=== PATIENT | male | born 1965 | race Caucasian/White ===

== ENCOUNTER 2021-08-12 07:11 | Outpatient (REF) | payer OTHER, SELFPAY ==
[2021-08-12 12:13] LABS: Alanine Aminotransferase 61 U/L (0-40); Alkaline Phosphatase 75 U/L (39-117); Anion Gap 11 (12-20); Aspartate Amino Transferase 35 U/L (5-37); Bilirubin Total 0.5 mg/dL (0.0-1.0); Blood Urea Nitrogen 12 mg/dL (9-16); Calcium 9.5 mg/dL (8.4-10.2); Carbon Dioxide 28 mmol/L (22-29); Chloride 105 mmol/L (96-108); Cholesterol 283 mg/dL; Estimated Glomerular Filt Rate > 60; Glucose Fasting 96 mg/dL (60-99); HDL Cholesterol 41 mg/dL; LDL Cholesterol Calculated 194 mg/dl; Sodium 139 mmol/L (135-145); Total Protein 6.9 g/dL (6.5-8.0); Triglycerides 243 mg/dL
[2021-08-12 12:17] LABS: Prostate Specific Antigen Scr 1.55 ng/mL (<0.05-4.0)
== END 2021-08-12 07:12 | disposition home or self-care (01) ==
LOC: HO.WFDLDS 07:11
PROVIDERS: Visit Provider Family Medicine
DX: Z00.00 Encounter for general adult medical examination without abnormal findings (principal); Z12.5 Encounter for screening for malignant neoplasm of prostate
CPT/HCPCS: 36415; 80053; 80061; 84153; 84443

== ENCOUNTER → 2021-09-16 14:29 | Outpatient (BNVA) | payer OTHER, SELFPAY | PROVIDERS: PCP Family Medicine; Referring Provider Family Medicine; Visit Provider Nurse Practitioner Family ==

== ENCOUNTER 2021-12-23 07:13 | Outpatient (REF) | payer OTHER, SELFPAY ==
[2021-12-23 12:04] LABS: Alanine Aminotransferase 32 U/L (0-40); Alkaline Phosphatase 66 U/L (39-117); Anion Gap 13 (12-20); Aspartate Amino Transferase 22 U/L (5-37); Blood Urea Nitrogen 14 mg/dL (9-16); Calcium 9.2 mg/dL (8.4-10.2); Carbon Dioxide 25 mmol/L (22-29); Chloride 106 mmol/L (96-108); Cholesterol 245 mg/dL; Estimated Glomerular Filt Rate > 60; Glucose Fasting 93 mg/dL (60-99); HDL Cholesterol 42 mg/dL; LDL Cholesterol Calculated 181 mg/dl; Potassium 4.7 mmol/L (3.3-5.1); Sodium 139 mmol/L (135-145); Total Protein 6.6 g/dL (6.5-8.0); Triglycerides 112 mg/dL
== END 2021-12-23 07:14 | disposition home or self-care (01) ==
LOC: HO.WFDLDS 07:13
PROVIDERS: Visit Provider Family Medicine
DX: Z00.00 Encounter for general adult medical examination without abnormal findings (principal)
CPT/HCPCS: 36415; 80053; 80061

== ENCOUNTER 2022-05-22 08:19 | Outpatient (REF) | payer OTHER, SELFPAY ==
[2022-05-22 12:31] LABS: Alanine Aminotransferase 50 U/L (0-40); Albumin Level 4.4 g/dL (3.5-5.0); Alkaline Phosphatase 97 U/L (39-117); Anion Gap 16 (12-20); Aspartate Amino Transferase 26 U/L (5-37); Bilirubin Total 1.2 mg/dL (0.0-1.0); Blood Urea Nitrogen 13 mg/dL (9-16); Calcium 9.5 mg/dL (8.4-10.2); Carbon Dioxide 25 mmol/L (22-29); Chloride 101 mmol/L (96-108); Cholesterol 228 mg/dL; Estimated Glomerular Filt Rate > 60; Glucose Fasting 85 mg/dL (60-99); HDL Cholesterol 59 mg/dL; LDL Cholesterol Calculated 153 mg/dl; Sodium 137 mmol/L (135-145); Total Protein 7.3 g/dL (6.5-8.0); Triglycerides 82 mg/dL
== END 2022-05-22 08:20 | disposition home or self-care (01) ==
LOC: HO.WFDLDS 08:19
PROVIDERS: Visit Provider Family Medicine
DX: Z00.00 Encounter for general adult medical examination without abnormal findings (principal); R74.01 Elevation of levels of liver transaminase levels
CPT/HCPCS: 36415; 80053; 80061

== ENCOUNTER 2022-06-23 08:10 | Day surgery (SDC) | payer OTHER, SELFPAY ==
[2022-06-18 15:54] VITALS: BMI 22.0
--- NOTE | 2022-06-22 12:40 | HO.ANESPROP2 ---
Documented by User: Kamille Marie NP 06/22/22 12:41 HPI - Anesthesia Eval Consult details Narrative: 57yo M for Colonoscopy PMFSH Active Problems Active Problems: All Active Problems (Updated 06/22/22 @ 11:09 by Radha Weaver, RN) Laboratory exam ordered as part of routine general medical examination (Acute) Difficulty sleeping (Acute) History of diverticulitis (Acute) Sleep disorder, unspecified (Acute) Excessive daytime sleepiness (Acute) Adult general medical exam (Acute) Elevated alanine aminotransferase (ALT) level (Acute) Hyperlipidemia (Acute) Screening for colon cancer (Acute) Screening for prostate cancer (Acute) Hearing loss (Acute) Rash (Acute) Toenail fungus (Acute) Encounter for screening colonoscopy (Acute) Anxiety (Acute) Rib pain on right side (Acute) Past Medical History Medical History (Updated 06/22/22 @ 11:09 by Radha Weaver, OLIVER) Elevated cholesterol History of diverticulitis Surgical History Surgical History History of hernia surgery Social History Social History Housing: House Alcohol intake: current Alcohol intake frequency: a few times a month Alcohol type: beer Patient Tobacco Use Status: Former Tobacco user e-Cigarette/Vaping Use: Never Used Second Hand Smoke Exposure: No service: No Current occupational status: employed Current occupation: [employer] Current occupational exposures/hazards: No Cognitive needs: No Hearing needs: No Vision needs: Yes (Glasses) Meds Allergies Allergy/AdvReac Type Severity Reaction Status Date / Time No Known Allergies Allergy Verified 05/21/22 15:35 Exam Exam Date and Time: June 22, 2022 1240 Height,Weight and Vital Signs: Height 5 ft 8 in Weight 65.771 kg Pertinent Lab Results Pertinent Lab Results: Laboratory Tests 05/22/22 08:25 Sodium 137 Potassium 5.0 Chloride 101 Carbon Dioxide 25 BUN 13 Creatinine 1.08 Assessment and Plan Assessment Anesthesia Assessment: Chart Reviewed Documented by User: Anthony Magallanes MD 06/23/22 16:04 [facility] Past Medical History Medical History (Updated 06/22/22 @ 11:09 by Radha Weaver RN) Elevated cholesterol History of diverticulitis Functional capacity: independent ambulation Family History Family history of problems with anesthesia: No Surgical History Surgical History History of hernia surgery History of Problems with Anesthesia: No Social History Social History Housing: House Alcohol intake: current Alcohol intake frequency: a few times a month Alcohol type: beer Patient Tobacco Use Status: Former Tobacco user e-Cigarette/Vaping Use: Never Used Second Hand Smoke Exposure: No service: No Current occupational status: employed Current occupation: [employer] Current occupational exposures/hazards: No Cognitive needs: No Hearing needs: No Vision needs: Yes (Glasses) Meds Allergies Allergy/AdvReac Type Severity Reaction Status Date / Time No Known Allergies Allergy Verified 05/21/22 15:35 Exam Airway Mallampati Class: III TM Dist: >3cm Neck ROM: Full Loose/Missing/Broken Teeth: Yes (Poor dentition overall , fillings ) Heart: S1,S2 Lungs: b/l breath sounds Assessment and Plan Assessment Anesthesia Assessment: Anesthesia Plan Discussed Final Anesthetic Review Family History of Problems with Anesthesia: No History of Problems with Anesthesia: No NPO: Yes ASA Class: II Final Preanesthetic Review: Meds/Allgs Chart Reviewed, Consent Obtained/Reviewed and Anes Risks/Benef Reviewed Patient Risk: Intermediate Procedure Risk: Intermediate Anesthetic Plan Anesthetic Plan: MAC: Disposition: Standard PACU
[2022-06-23 08:18] VITALS: BP 138/71; PULSE 65; RESP 16; TEMP 36.6; O2SAT 99; BMI 22.0
--- NOTE | 2022-06-23 09:14 | MHC.SHP ---
Pre-Procedural Eval Section A Date of Service: 06/23/22 Section B Chief Complaint: screening Relevant Family History (Specify if Yes): No Relevant Social History: None Present Medications: see Short Stay Collaborative assessment Medical History: Significant History (Elevated cholesterol History of diverticulitis) History of Previous Operations: Relevant previous surgery/procedure and date(s) (hernia surgery) Allergies: Allergies Allergy/AdvReac Type Severity Reaction Status Date / Time No Known Allergies Allergy Verified 05/21/22 15:35 Review of Systems Sugical H&P ROS: Negative: Constitution, Cardiovascular, Respiratory, Neurological, Psychiatric, Hem-Onc, Allergic/Immunologic, Gastrointestinal, Genitourinary, Musculoskeletal, Integumentary, Endocrine and Eyes/Ears/Nose/Throat Exam Surgical H&P Exam: Normal: HEENT, Normal: Heart, Normal: Lungs, Normal: Extremities, Normal: Abdomen, Normal: Skin and Normal: Neurological Plan Diagnosis/Plan: Unchanged I have reviewed the history and physical and performed a pertinent physical examination on my patient. No changes have occurred unless specified.
--- NOTE | 2022-06-23 09:15 | P.OP_ITS ---
Operative Note Operative Note Date of Service: 06/23/22 Narrative: Operative Information Procedure Description: Colonoscopy Indication: screening Anesthesia: MAC COLONOSCOPY Instrument: Olympus variable stiffness pediatric scope 190L Colonoscopy Monitoring: Vital signs and clinical assessment, continuous EKG monitoring, Pulse oximetry, Carbon Dioxide monitoring and blood pressure monitoring were done throughout the procedure. Colon withdrawal time was 12 minutes. Procedure: The patient was placed in the left lateral decubitis position and pre-procedure medications were administered. After a digital rectal examination of the ano-rectum, the video colonoscope was inserted into the rectum and advanced through the colon to the cecum/TI. The colonoscope was slowly withdrawn in a retrograde panoramic fashion and the colon mucosa was carefully examined including a retroflexed view of the rectum. Findings and interventions are described below. Procedure Difficulty: moderate, pressure applied due to severe looping from diverticulosis Findings: Terminal Ileum-not intubated Severe fernandez diverticulosis jennifer left sided colon with tight lumen. Cecum:normal Ascending Colon: normal Transverse Colon -normal Descending Colon:normal Sigmoid Colon: 10 mm sessile polyp removed with cold snare Rectum: Retroflexion with large internal hemorrhoids, grade I, 10 mm sessile polyp removed with cold snare-not retrieved Anorectum - normal Colon preparation: Chancellor Bowel Preparation Scale Right colon; 2 Transverse colon: 3 Left colon; 3 (0 = Unprepared colon segment with mucosa not seen due to solid stool that cannot be cleared. 1 = Portion of mucosa of the colon segment seen, but other areas of the colon segment not well seen due to staining, residual stool and/or opaque liquid. 2 = Minor amount of residual staining, small fragments of stool and/or opaque liquid, but mucosa of colon segment seen well. 3 = Entire mucosa of colon segment seen well with no residual staining, small fragments of stool or opaque liquid) Impression and Post Procedure Diagnosis: polyps internal hemorrhoids diverticular disease Plan: High fiber diet leaflet Avoid straining at stool, epsom salts and sitz bath, anusol supps or cream Repeat Colonoscopy in 4-5 years or earlier if clinically indicated due to adenomatous appearing polyps by Kudo classification Above findings were reviewed with the patient and relevant handouts were provided if indicated.
[2022-06-23 09:57] VITALS: BP 101/57; PULSE 60; RESP 16; TEMP 36.2; O2SAT 98
[2022-06-23 10:12] VITALS: BP 121/70; PULSE 53; RESP 18; TEMP 36.2; O2SAT 99
== END 2022-06-23 11:08 | disposition home or self-care (01) ==
PROVIDERS: PCP Family Medicine; Visit Provider Internal Medicine Gastroenterology
PROC: 0DJD8ZZ Inspection of Lower Intestinal Tract, Via Natural or Artificial Opening Endoscopic (ICD-10-PCS; CPT 45378; principal; 2022-06-23 09:10)
DX: Z12.11 Encounter for screening for malignant neoplasm of colon (principal); Z87.19 Personal history of other diseases of the digestive system; D12.5 Benign neoplasm of sigmoid colon; K57.30 Diverticulosis of large intestine without perforation or abscess without bleeding; K64.0 First degree hemorrhoids; Z79.899 Other long term (current) drug therapy; Z87.891 Personal history of nicotine dependence
CPT/HCPCS: 45385; 88305

== ENCOUNTER 2023-09-22 07:56 | Outpatient (AMB) | payer OTHER, SELFPAY ==
--- NOTE | 2023-09-22 08:05 | A.OFFPC_ITS ---
Vital Signs 09/22/23 08:09 Height 5 ft 8 in Weight 153 lb BMI 23.3 BP 126/70 Blood Pressure Location Rt brachial Position Sitting Respiration 13 Pulse 77 Pulse Source Pulse Oximeter Temp 97.9 F Temp Source Temporal Artery Scan Pulse Oximetry (%) 97 Oxygen Delivery Method Room Air Intake Visit Reasons: Annual PE Intake Note: Patient states that he cant eat fruits anymore. Patient states that his stomach starts turning and he gets very gassy everytime he tries. 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 Has eliminated from diet and feels great. Wt is stable. Was on statin in the past - stopped this as it was causing joint aches. Eyes - glasses. Last eye exam overdue. Will schedule. Does not need referral. Skin - No issues Denies changes in Family HX. Note 2 brothers with prostate ca. 1 brother w/ colon ca. Immunizations - declines flu, pcv, shingles. Due for Td will get today. Due for repeat labs. Health maintenance: Colonoscopy: 07/12/2022 with adenoma, repeat in 4-5 years. Specialist: [facility] medicine -- all of his sx are now gone. No longer following. No CPAP. Sleeping well. 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 1. Little interest or pleasure in doing things: not at all 2. Feeling down, depressed, or hopeless: not at all 3. Trouble falling or staying asleep, or sleeping too much: several days 4. Feeling tired or having little energy: several days 5. Poor appetite or overeating: not at all 6. Feeling bad about yourself - or that you are a failure or have let yourself or your family down: not at all 7. Trouble concentrating on things, such as reading the newspaper or watching television: not at all 8. Moving or speaking so slowly that other people could have noticed. Or the opposite - being so fidgety or restless that you have been moving around a lot more than usual: not at all 9. Thoughts that you would be better off or of hurting yourself in some way: not at all Total score: 2 Depression Screening Interpretation: Negative Depression Screening Done: Yes 44428 - PHQ-9 Billing: Yes Source: Developed by Drs. Pipo Yo, Hayley Gutiérrez, Navid Levine and colleagues, with an educational robles from [employer]. Thrive Questionnaire Date Thrive assessed: 09/22/23 I am a: Patient What is your living situation today?: I have a steady place to live Within the past 12 months, did the food you bought not last and you didn't have the money to get more?: Never true Within the past 12 months, did you worry whether your food would run out before you got money to buy more?: Never true Do you have trouble paying for medicines?: No Do you have trouble getting transportation to medical appointments?: No Do you have trouble paying your heating and electricity bill?: No Do you have trouble taking care of your child, family member or friend?: No Do you have trouble with day-to-day activities such as bathing, preparing meals, shopping, managing finances, etc.?: No Are you currently unemployed and looking for a job?: No Are you interested in more education?: No Please select the resources that you would like help with: None Currently or been in a relationship where the following occur: no concerns reported THRIVE Score: 0 AUDIT C Alcohol Use Questionnaire (AUDIT-C) 1. How often do you have a drink containing alcohol?: 4 or more times a week 2. How many drinks containing alcohol do you have on a typical day when you are drinking?: 1 or 2 3. How often do you have six or more drinks on one occasion?: Never Total Score: 4 Score Reviewed/Action Taken: No ANISA-7 AMB Questionnaire ANISA-7 Date ANISA - 7 assessed: 09/22/23 Feeling nervous, anxious, or on edge: 0 = Not at all Not being able to stop or control worryin = Not at all Worrying too much about different things: 0 = Not at all Trouble relaxin = Not at all Being so restless that it is hard to sit still: 0 = Not at all Becoming easily annoyed or irritable: 0 = Not at all Feeling afraid as if something awful might happen: 0 = Not at all Total ANISA-7 score (0-4 normal; 5-9 mild; 10-14 moderate; 15-21 severe): 0 Source: Developed by Drs. Pipo Yo, Hayley Gutiérrez, Navid Levine and colleagues, with an educational robles from [employer]. ANISA-7 Assessment Billing ANISA-7 Assessment Tool: ANISA-7 Assessment 76988 Review of Systems Const Details: Constitutional: [Denies} fever. Skin: Denies rash. Eye: Denies eye pain. ENMT: Denies sore throat and nasal congestion. Respiratory: Denies shortness of breath and cough. Gastrointestinal: Denies nausea, vomiting or abdominal pain. Cardiovascular: Denies chest pain and syncope. Genitourinary: Denies dysuria. Musculoskeletal: Denies back pain and extremity pain. Neurologic: Denies headaches, confusion, and weakness. Psychiatric: Denies suicidal thoughts and substance abuse. Allergy/ Immunologic: Denies impaired immunity. Physical exam (Primary Care) Vital Signs: Last Vital Signs Temp 97.9 F 09/22/23 08:09 Pulse 77 09/22/23 08:09 Resp 13 09/22/23 08:09 BP 126/70 09/22/23 08:09 Pulse Ox 97 09/22/23 08:09 Oxygen Delivery Method Room Air 09/22/23 08:09 BMI result Body Mass Index 23.3 Tobacco/Smoking Status: Tobacco use Status Tobacco use date assessed 09/22/23 09/22/23 08:18 Patient Tobacco Use Status Former Tobacco user 09/22/23 08:06 e-Cigarette/Vaping Use Never Used 09/22/23 08:06 PHQ-9: PHQ-9 Score PHQ-9: Total score 2 09/22/23 12:41 Depression Screening Interpretation: Negative Thrive Assessment: Date of Thrive Assessment Date Thrive assessed 09/22/23 09/22/23 08:18 Currently or been in a relationship where the following occur: no concerns reported Const Other: General: Well developed, well nourished, in no acute distress. Appears stated age. Head: Normocephalic, atraumatic. Eyes: Pupils are equal, round and reactive to light and accommodation. Conjunctivae are clear. Vision grossly normal. Ears: TMs clear AU, EACS WNL Nose: Patent, without discharge. Mouth: There are no ulcers or lesions noted. No inflammation, no post nasal drip, no plaques nor exudates. Neck: Supple, no adenopathy or thyromegaly. Lungs: Clear to auscultation bilaterally. No rales, rhonchi or wheeze noted. Good air flow in all marie. Heart: Regular rate and rhythm. No murmurs, click, rubs or gallops are noted. Abdomen: Bowel sounds present in all quadrants. The abdomen is soft, nontender, with no masses or organomegaly noted. No hernias are noted. Musculoskeletal: Joints are nontender, without swelling, redness, or effusions. Range of motion is observed to be normal. Pulses: Peripheral pulses are equal and palpable bilaterally. Extremities: No clubbing, cyanosis nor edema is noted. Neurologic: Gait and station normal. Cranial Nerves 2-12 intact. Motor strength grossly symmetrical and intact. No sensory loss. Balance normal. Skin: No rashes, ulcers, or lesions noted. Turgor is good. Skin color is good. Hair and nails are without abnormalities. Psych: Normal eye contact, affect and mood appropriate, and normal interactions. Patient is alert and appropriate to context. Extremities: No clubbing, cyanosis or edema. 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 The purpose of these visits is to: Screen for medical issues Assess your risk for future medical problems Encourage a healthy lifestyle Update vaccinations and other preventive care services Help you get to know your provider in case of an illness Information Even if you feel fine, you should still see your provider for regular checkups. These visits can help you avoid problems in the future. For example, the only way to find out if you have high blood pressure is to have it checked regularly. High blood sugar and high cholesterol level also may not have any symptoms in the early stages. Simple blood tests can check for these conditions. There are specific times when you should see your provider or receive specific health screenings. The [place] Preventive Services Task Force publishes a list of recommended screenings. Below are screening guidelines for men ages 40 to 64. BLOOD PRESSURE SCREENING Have your blood pressure checked at least once every year. Watch for blood pressure screenings in your area. Ask your provider if you can stop in to have your blood pressure checked. Ask your provider if you need your blood pressure checked more often if: You have diabetes, heart disease, kidney problems, or are overweight or have certain other health conditions You have a first-degree relative with high blood pressure You are Black Your blood pressure top number is from 120 to 129 mm Hg, or the bottom number is from 70 to 79 mm Hg If the top number is 130 mm Hg or greater or the bottom number is 80 mm Hg or greater, this is considered stage 1 hypertension. Schedule an appointment with your provider to learn how you can lower your blood pressure. Effects of age on blood pressure CHOLESTEROL SCREENING Cholesterol screening should begin at age 35 for men with no known risk factors for coronary heart disease. Repeat cholesterol screening should take place: Every 5 years for men with normal cholesterol levels More often if changes occur in lifestyle (including weight gain and diet) More often if you have diabetes, heart disease, kidney problems, or certain other conditions COLORECTAL CANCER SCREENING If you are under age 45, talk to your provider about getting screened. You may need to be screened if you have a strong family history of colon cancer or polyps. Screening may also be considered if you have risk factors such as a history of inflammatory bowel disease or polyps. If you are age 45 to 75, you should be screened for colorectal cancer. There are several screening tests available: A stool-based fecal occult blood (gFOBT) or fecal immunochemical test (FIT) every year A stool sDNA test every 1 to 3 years Flexible sigmoidoscopy every 5 years or every 10 years with stool testing FIT done every year CT colonography (virtual colonoscopy) every 5 years Colonoscopy every 10 years You may need a colonoscopy more often if you have risk factors for colorectal cancer, such as: Ulcerative colitis A personal or family history of colorectal cancer A history of growths in your colon called adenomatous polyps DENTAL EXAM Go to the dentist once or twice every year for an exam and cleaning. Your dentist will evaluate if you have a need for more frequent visits. DIABETES SCREENING All adults who do not have risk factors for diabetes should be screened starting at age 35 and repeated every 3 years. If you have other risk factors for diabetes, such as a first degree relative with diabetes, overweight or obesity, high blood pressure, prediabetes, or a history of heart disease, you may be tested more often. If you are overweight and have other risk factors, such as high blood pressure and are planning to become , screening is recommended. EYE EXAM Have an eye exam every 2 to 4 years ages 40 to 54 and every 1 to 3 years ages 55 to 64. Your provider may recommend more frequent eye exams if you have vision problems or glaucoma risk. Have an eye exam that includes an examination of your retina (back of your eye) at least every year if you have diabetes. IMMUNIZATIONS Commonly needed vaccines include: Flu shot: get one every year COVID-19 vaccine: ask your provider what is best for you Tetanus-diphtheria and acellular pertussis (Tdap) vaccine: have as one of your tetanus-diphtheria vaccines if you did not receive it as an adolescent Tetanus-diphtheria: have a booster (or Tdap) every 10 years Varicella vaccine: receive 2 doses if you never had chickenpox or the varicella vaccine and were born in 1980 or after Hepatitis B vaccine: receive 2, 3, or 4 doses, depending on your exact circumstances, if you did not receive these as a child or adolescent, until age 59 Shingles (herpes zoster) vaccine: at or after age 50 Ask your provider if you should receive other immunizations, especially if you have certain medical conditions, such as diabetes or are at increased risk for some diseases such as pneumonia. INFECTIOUS DISEASE SCREENING Screening for hepatitis C: all adults ages 18 to 79 should get a one-time test for hepatitis C. Screening for human immunodeficiency virus (HIV): all people ages 15 to 65 should get a one-time test for HIV. Depending on your lifestyle and medical history, you may need to be screened for infections such as syphilis, chlamydia, and other infections. LUNG CANCER SCREENING You should have an annual screening for lung cancer with low-dose computed tomog [place]ville (LDCT) if: You are age 50 to 80 years AND You have a 20 pack-year smoking history AND You currently smoke or have quit within the past 15 years OSTEOPOROSIS SCREENING If you are age 50 to 64 and have risk factors for osteoporosis, you should discuss screening with your provider. Risk factors can include long-term steroid use, low body weight, smoking, heavy alcohol use, having a fracture after age 50, or a family history of hip fracture or osteoporosis. Osteoporosis PHYSICAL EXAM All adults should visit their provider from time to time, even if they are healthy. The purpose of these visits is to: Screen for diseases Assess risk of future medical problems Encourage a healthy lifestyle Update vaccinations and other preventive care services Maintain a relationship with a provider in case of an illness Your height, weight, and body mass index (BMI) should be checked at every exam. During your exam, your provider may ask you about: Depression and anxiety Diet and exercise Alcohol and tobacco use Safety, such as use of seat belts and smoke detectors Your medicines and risk for interactions PROSTATE CANCER SCREENING If you're 55 through 69 years old, before having the test, talk to your provider about the pros and cons of having a PSA test. Ask about: Whether screening decreases your chance of dying from prostate cancer. Whether there is any harm from prostate cancer screening, such as side effects from testing or overtreatment of cancer when discovered. Whether you have a higher risk of prostate cancer than others. If you are age 55 or younger, screening is not generally recommended. You should talk with your provider about if you have a higher risk for prostate cancer. Risk factors include: Having a family history of prostate cancer (especially a brother or father) Being If you choose to be tested, the PSA blood test is repeated over time (yearly or less often), though the best frequency is not known. Prostate examinations are no longer routinely done on men with no symptoms. Prostate cancer SKIN EXAM Your provider may check your skin for signs of skin cancer, especially if you're at high risk. People at high risk include those who have had skin cancer before, have close relatives with skin cancer, or have a weakened immune system. TESTICULAR EXAM The [place] Preventive Services Task Force (USPSTF) now recommends against performing testicular self-exams. Doing testicular self-exams has been shown to have little to no benefit. (2) Screening for prostate cancer: Code(s): Z12.5 - Encounter for screening for malignant neoplasm of prostate (3) Hyperlipidemia: Code(s): E78.5 - Hyperlipidemia, unspecified Qualifiers: Hyperlipidemia type: mixed hyperlipidemia Qualified Code(s): E78.2 - Mixed hyperlipidemia Plan: Was on a statin was stopped taking. Direct LDL drawn today as the patient is not fasting We will follow-up with him if the results indicates that he needs to restart on a statin (4) Laboratory exam ordered as part of routine general medical examination: Code(s): Z00.00 - Encounter for general adult medical examination without abnormal findings (5) Screening for abdominal aortic aneurysm: Code(s): Z13.6 - Encounter for screening for cardiovascular disorders (6) Cerumen impaction: Code(s): H61.20 - Impacted cerumen, unspecified ear Qualifiers: Laterality: right Qualified Code(s): H61.21 - Impacted cerumen, right ear Plan: Earwax (Cerumen Impaction) Created in Ears Earwax, called cerumen, is produced by special wax-forming glands located in the skin of the outer one-third of the ear canal. It is normal to have cerumen in ear canal as this waxy substance serves as a self-cleaning agent with protective, lubricating, and antibacterial properties. The absence of earwax may result in dry, itchy ears. Self-cleaning means there is a slow and field return repairer movement of earwax and skin cells from the eardrum to the ear opening. Old earwax is constantly being transported, assisted by chewing and jaw motion, from the ear canal to the ear opening where, most of the time, it dries, flakes, and falls out. What Are the Symptoms of an Earwax Blockage? Symptoms of an earwax problem may include: Earache Feeling of plugged hearing or fullness in the ear Partial hearing loss that gets worse Tinnitus, ringing, or noises in the ear Itching, odor, or discharge Coughing Pain Infection What Causes Earwax Blockage? When a patient has wax blockage against the eardrum, it is often because they have been probing the ear with such things as cotton-tipped swabs, autumn pins, or twisted napkin corners. These objects only push the wax in deeper in the ear canal. Why Is It Dangerous to Use Swabs to Remove Earwax? Wax blockage is one of the most common causes of hearing loss. This is often caused by attempts to clean the ear with cotton swabs. Most cleaning attempts merely push the wax deeper into the ear canal which is shaped like an hourglass, causing a blockage at the narrowing part of the ear canal. In addition, accidental trauma to the ear drum or ear bones can occur if the swab is pushed too deep. Good intentions to keep ears clean may lessen the ability to hear. The ear is a delicate and complicated body part, including the skin of the ear canal and the eardrum. Therefore, special care should be given to this part of the body. Discontinue the habit of inserting cotton-tipped swabs or other objects into the ear canals. What Are the Treatment Options? Cleaning a working ear can be done by washing it with a soft cloth, but do not insert anything into the ear. Ideally, the ear canals should never have to be cleaned. However, that isn?t always the case. The ears should be cleaned when enough earwax gathers to cause symptoms or to prevent a needed assessment of the ear by your doctor. This condition is call cerumen impaction. Most cases of ear wax blockage respond to home treatments used to soften wax. Patients can try placing a few drops of mineral oil, baby oil, glycerin, or commercial drops in the ear. Detergent drops such as hydrogen peroxide or carbamide peroxide (available in most pharmacies) may also aid in the removal of wax. Irrigation or ear syringing is commonly used for cleaning and can be performed by a physician or at home using a commercially available irrigation kit. Common solutions used for syringing include water and saline, which should be warmed to body temperature to prevent dizziness. Ear syringing is most effective when water, saline, or wax dissolving drops are put in the ear canal 15 to 30 minutes before treatment. Caution is advised to avoid having your ears irrigated if you have diabetes, a hole in the eardrum (perforation), tube in the eardrum, skin problems such as eczema in the ear canal or a weakened immune system. >> If you have been prescribed Debrox, use as directed for 5 nights and return to the office on Day 6 for an ear lavage to remove the wax<< Manual removal of earwax is also effective. This is most often performed by an ENT (ear, nose, and throat) specialist, or mainframe developer, using suction or special miniature instruments, and a microscope to magnify the ear canal. Manual removal is preferred if your ear canal is narrow, the eardrum has a perforation or tube, other methods have failed, or if you have skin problems affecting the ear canal, diabetes or a weakened immune system. When Should I Talk to a Doctor? If home treatments do not help, or if wax has accumulated so much that it blocks your ear canal and your ability to hear, an ENT specialist may prescribe eardrops designed to soften wax, or they may wash or vacuum it out. Your ENT s pecialist may also need to remove the wax under microscopic visualization. If there is a possibility of a perforation in the eardrum, consult a physician prior to trying any [id number] remedies. Putting eardrops or other products in the ear with the presence of an eardrum perforation may cause pain or an infection. Washing water through such a hole could start an infection. If you are prone to repeated wax impaction or use hearing aids, consider seeing your doctor every six to 12 months for a checkup and routine preventive cleaning. What Questions Should I Ask My Doctor? What are the benefits and risks/side effects of different cerumen removal management options: earwax softening products, water irrigation vs. physical removal? Does cerumen accumulation vary with age, gender, familial or dietary intake? How do I manage swimming underwater with cerumen impaction? Should anything be done to the ears to prevent a buildup of earwax? How often should cerumen be removed from the ears? Are ear candles a safe option for removing earwax? (7) Anxiety: Comment: resolved Code(s): F41.9 - Anxiety disorder, unspecified (8) History of diverticulitis: Code(s): Z87.19 - Personal history of other diseases of the digestive system Orders: Orders Comprehensive Met. Panel Today E78.5 - Hyperlipidemia, unspecified, Z00.00 - Encounter for general adult medical examination without abnormal findings, Z12.5 - Encounter for screening for malignant neoplasm of prostate LDL Cholesterol Direct Today E78.5 - Hyperlipidemia, unspecified, Z00.00 - Encounter for general adult medical examination without abnormal findings, Z12.5 - Encounter for screening for malignant neoplasm of prostate TSH reflex Free T4 Today E78.5 - Hyperlipidemia, unspecified, Z00.00 - Encounter for general adult medical examination without abnormal findings, Z12.5 - Encounter for screening for malignant neoplasm of prostate UA and rflx microscopic Today E78.5 - Hyperlipidemia, unspecified, Z00.00 - Encounter for general adult medical examination without abnormal findings, Z12.5 - Encounter for screening for malignant neoplasm of prostate TDaP Immunization Today Z23 - Encounter for immunization PSA, Ultra Sensitive Today E78.5 - Hyperlipidemia, unspecified, Z00.00 - Encounter for general adult medical examination without abnormal findings, Z12.5 - Encounter for screening for malignant neoplasm of prostate Microalbumin, Random (w Creat) Today E78.5 - Hyperlipidemia, unspecified, Z00.00 - Encounter for general adult medical examination without abnormal findings, Z12.5 - Encounter for screening for malignant neoplasm of prostate US abdominal aortic aneurysm Today Z13.6 - Encounter for screening for cardiovascular disorders Coding Level of Care Code Est Pt Prev Care 40-64y(65805) Diagnoses Adult general medical exam Z00.00 Screening for prostate cancer Z12.5 Mixed hyperlipidemia E78.2 Hyperlipidemia type: mixed hyperlipidemia Laboratory exam ordered as part of routine general medical examination Z00.00 Screening for abdominal aortic aneurysm Z13.6 Impacted cerumen of right ear H61.21 Laterality: right Anxiety F41.9 History of diverticulitis Z87.19 Additional Codes ANISA-7 Assessment Billing - ANISA-7 Assessment Tool: ANSIA-7 Assessment [id number] ([id number])
[2023-09-22 08:09] VITALS: BP 126/70; PULSE 77; RESP 13; TEMP 36.6; O2SAT 97; BMI 23.3
== END 2023-09-22 09:29 | disposition home or self-care (01) ==
PROVIDERS: PCP Family Medicine; Visit Provider Nurse Practitioner Family
DX: Z00.00 Encounter for general adult medical examination without abnormal findings (principal); E78.2 Mixed hyperlipidemia; H61.21 Impacted cerumen, right ear; Z23 Encounter for immunization; Z12.5 Encounter for screening for malignant neoplasm of prostate; Z13.6 Encounter for screening for cardiovascular disorders; F41.9 Anxiety disorder, unspecified; Z87.19 Personal history of other diseases of the digestive system
CPT/HCPCS: 90471; 90715; 99396

== ENCOUNTER 2023-09-22 09:16 | Outpatient (REF) | payer OTHER, SELFPAY ==
[2023-09-22 11:32] LABS: Appearance Urine Clear; Color Urine Yellow; Glucose Urine UA Negative (Negative); Leukocyte Esterase Urine Negative (Negative); Nitrite Urine Negative (Negative); Urine Blood Negative (Negative); Urine Ketones Negative (Negative); Urine Protein Negative (Neg-Trace)
[2023-09-22 12:06] LABS: Alanine Aminotransferase 31 U/L (0-40); Alkaline Phosphatase 81 U/L (39-117); Anion Gap 10 (12-20); Aspartate Amino Transferase 24 U/L (5-37); Bilirubin Total 0.3 mg/dL (0.0-1.0); Blood Urea Nitrogen 15 mg/dL (9-16); Calcium 9.1 mg/dL (8.4-10.2); Carbon Dioxide 26 mmol/L (22-29); Chloride 107 mmol/L (96-108); Estimated Glomerular Filt Rate > 60; Glucose Random 104 mg/dL (60-115); Potassium 4.2 mmol/L (3.3-5.1); Sodium 139 mmol/L (135-145); Total Protein 7.2 g/dL (6.5-8.0)
[2023-09-22 12:28] LABS: TSH reflex Free T4 1.67 uIU/mL (0.32-4.0)
[2023-09-22 12:33] LABS: Creatinine Urine 95.91 mg/dL; Microalbumin Urine < 5.0 mg/L
[2023-09-23 13:44] LABS: LDL Cholesterol Direct 161 mg/dL (<100)
[2023-09-27 17:48] LABS: PSA, Ultra Sensitive 1.21 ng/mL
== END 2023-09-22 09:17 | disposition home or self-care (01) ==
LOC: HO.WFDLDS 09:16
PROVIDERS: Visit Provider Nurse Practitioner Family
DX: Z00.00 Encounter for general adult medical examination without abnormal findings (principal); Z12.5 Encounter for screening for malignant neoplasm of prostate; E78.5 Hyperlipidemia, unspecified
CPT/HCPCS: 36415; 80053; 81003; 82043; 82570; 83721; 84153; 84443

== ENCOUNTER 2024-09-19 07:43 | Outpatient (REF) | payer OTHER, SELFPAY ==
[2024-09-19 11:49] LABS: Anion Gap 9 (12-20); Blood Urea Nitrogen 16 mg/dL (9-16); Calcium 8.8 mg/dL (8.4-10.2); Carbon Dioxide 26 mmol/L (22-29); Chloride 108 mmol/L (96-108); Cholesterol 227 mg/dL (<200); Estimated Glomerular Filt Rate > 60; Glucose Fasting 99 mg/dL (60-99); HDL Cholesterol 48 mg/dL (>40); LDL Cholesterol Calculated 160 mg/dL (<100); Potassium 4.7 mmol/L (3.3-5.1); Sodium 138 mmol/L (135-145); Triglycerides 98 mg/dL (<150)
== END 2024-09-19 07:44 | disposition home or self-care (01) ==
LOC: HO.WFDLDS 07:43
PROVIDERS: Visit Provider Nurse Practitioner Family
DX: E78.2 Mixed hyperlipidemia (principal)
CPT/HCPCS: 36415; 80048; 80061

== ENCOUNTER 2024-09-25 08:58 | Outpatient (AMB) | payer OTHER, SELFPAY ==
--- NOTE | 2024-09-25 08:59 | MHC.PC.OV ---
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 Labs drawn 09/19/24. Reviewed labs with pt. Triglycerides 98. TC 227. LDL 160. HDL 48. Had been on lovastatin at one point. Notes he has an active lifestyle. Has complaints of hemorrhoids. 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 57943 - PHQ-9 Billing: Patient declined-do not bill Source: Developed by Drs. Pipo Yo, Hayley Gutiérrez, Navid Levine and colleagues, with an educational robles from [employer]. Thrive Questionnaire Date Thrive assessed: 09/22/23 ANISA-7 AMB Questionnaire ANISA-7 Date ANISA - 7 assessed: 09/22/23 Source: Developed by Drs. Pipo Yo, Hayley Gutiérrez, Navid Levine and colleagues, with an educational robles from [employer]. Review of Systems Const Denies chills, Denies fatigue, Denies fever(s), Denies headache(s) and Denies weakness Eyes Denies change in vision ENT Denies dizziness, Denies headache(s), Denies hearing loss, Denies nasal congestion, Denies sinus pain, Denies sinus pressure and Denies sore throat Card Denies chest pain, Denies lightheadedness, Denies dyspnea and Denies other (palpitations) Resp Denies cough, Denies dyspnea and Denies wheezing GI Denies abdominal pain, Denies melena, Denies hematochezia, Denies change in bowel habits, Denies dyspepsia and Denies nausea Denies hematuria and Denies dysuria Musc Denies abnormal gait, Denies myalgias, Denies arthralgias, Denies numbness and Denies tingling Skin/Breast Denies rash, Denies unusual bruising and Denies wounds Neuro Denies abnormal gait, Denies dizziness, Denies headache(s), Denies memory loss, Denies numbness, Denies Sensory deficit (Neuro), Denies tingling and Denies weakness Psych Denies anxiety, Denies depression and Denies memory loss Endo Denies cold intolerance, Denies fatigue, Denies heat intolerance, Denies polydipsia and Denies polyuria Ash/Lymph Denies easy bleeding and Denies easy bruising Aller/Immun Denies wheezing Physical exam (Primary Care) Vital Signs: Last Vital Signs Temp 97.2 F 09/25/24 09:04 Pulse 67 09/25/24 09:04 Resp 13 09/25/24 09:04 BP 137/77 09/25/24 09:04 Pulse Ox 98 09/25/24 09:04 Oxygen Delivery Method Room Air 09/25/24 09:04 BMI result Body Mass Index 22.7 Tobacco/Smoking Status: Tobacco use Status Tobacco use date assessed 09/25/24 09/25/24 09:04 Patient Tobacco Use Status Former Tobacco user 09/25/24 09:04 e-Cigarette/Vaping Use Never Used 09/25/24 09:04 Thrive Assessment: Date of Thrive Assessment Date Thrive assessed 09/22/23 09/25/24 09:04 Const General: no acute distress, well developed, alert and awake Nutritional Appearance: well nourished Orientation/consciousness: patient oriented x3 HENMT Head: Yes normocephalic and Yes atraumatic Ears: hearing grossly normal bilaterally and TM's normal bilaterally General nose exam: Normal external nose present and Normal nares present Mouth: Normal oral and palatal mucosa present and moist mucous membranes Teeth and gingiva: dentition normal Throat: Yes posterior oropharynx normal Eyes General: appearance normal, both eyes and all related structures Pupils: Equal, round and reactive pupils present and Pupil accommodation reflex normal EOM: EOMs intact bilaterally Neck Neck: Yes normal visual inspection, Yes no lymphadenopathy and Yes trachea midline Thyroid: Thyroid normal Carotids: no bruits Lymphatic: no lymphadenopathy noted Chest Chest palpation & inspection: normal inspection of the chest Resp Effort & Inspection: normal respiratory effort Auscultation: clear to auscultation bilaterally Cardio Rate: regular rate Rhythm: regular rhythm Heart sounds: S1 normal heart sound present, S2 normal heart sound present, no gallops, no murmurs and no rubs Bruits: no abdominal aortic bruits and no carotid bruits GI Palpation (GI): No Abdominal aortic bruit present, Soft to palpation, nontender, No hepatosplenomegaly present and No Rebound tenderness present Auscultation: normal bowel sounds General: Yes no CVA tenderness Back/Spine/Pelvis Back: no CVA tenderness Cervical Spine: cervical ROM normal and No Cervical spine tenderness Thoracic/Lumbar Spine: thoraco-lumbar ROM normal, No pain with thoraco-lumbar ROM, No thoracic spinal tenderness and No lumbar spinal tenderness Skin Lesions: no lesions Rashes: no rashes Trauma: no lacerations or abrasions Wounds: no wounds Nails: normal Neuro General: patient oriented x3 Cranial nerves: Yes Equal, round and reactive pupils present Cognition (Neuro): normal cognition Gait exam (Neuro): Normal gait present Motor exam (neuro): 5/5 motor strength present throughout Sensory Exam: No Sensory deficit (Neuro) Deep tendon reflexes (DTR's): Right patellar reflex intensity grade: 2+ and Left patellar reflex intensity grade: 2+ Extrem General: Yes normal to inspection and No edema Psych Appearance: grossly normal Affect: normal affect Attitude: cooperative Thought process: Normal thought process present Coding Level of Care Code Est Pt Level 3 (89565) Est Pt Prev Care 40-64y(54936) Diagnoses Adult general medical exam Z00.00 Mixed hyperlipidemia E78.2 Hyperlipidemia type: mixed hyperlipidemia Screening for colon cancer Z12.11 Screening for prostate cancer Z12.5 Hemorrhoids K64.9 Assessment & Plan Assessment & Plan (1) Adult general medical exam: Code(s): Z00.00 - Encounter for general adult medical examination without abnormal findings Category: Medical Plan: 59-year-old?male?presents?for?complete?physical?exam Encouraged?healthy?diet?with?active?lifestyle?and?exercise (2) Hyperlipidemia: Code(s): E78.5 - Hyperlipidemia, unspecified Category: Medical Qualifiers: Hyperlipidemia type: mixed hyperlipidemia Qualified Code(s): E78.2 - Mixed hyperlipidemia Plan: Patient?had?been?on?lovastatin?but?the?script?ran?out?and?he?did?not?continue?it. He?says?his?diet?has?improved?any?was?hoping?that?his?lipids?would?be?okay. LDL?still?significantly?elevated Will?resume?statin;?start?atorvastatin We?can?follow-up?on?his?labs?in?3?months (3) Screening for colon cancer: Code(s): Z12.11 - Encounter for screening for malignant neoplasm of colon Category: Medical Plan: Patient?had?polyps/tubular?adenoma?in?2021 Currently?up-to-date Follow-up?was?Gastroenterology?as?recommended (4) Screening for prostate cancer: Code(s): Z12.5 - Encounter for screening for malignant neoplasm of prostate Category: Medical Plan: Check?PSA (5) Hemorrhoids: Code(s): K64.9 - Unspecified hemorrhoids Category: Medical Plan: Patient?would?like?referral?to?consider?surgical?procedure Orders: Orders Lipid Panel Today E78.2 - Mixed hyperlipidemia, Z00.00 - Encounter for general adult medical examination without abnormal findings Prostate Specific Antigen Scr Today Z12.5 - Encounter for screening for malignant neoplasm of prostate UA and rflx microscopic Today Z00.00 - Encounter for general adult medical examination without abnormal findings Comprehensive [place]. Panel Fast Today E78.2 - Mixed hyperlipidemia, Z00.00 - Encounter for general adult medical examination without abnormal findings TSH reflex Free T4 Today Z00.00 - Encounter for general adult medical examination without abnormal findings Microalbumin, Random (w Creat) Today I10 - Essential (primary) hypertension Referrals General Surgery Referral K64.9 - Unspecified hemorrhoids Medications: New atorvastatin 20 mg PO BEDTIME 90 days 90 tabs 3RF
[2024-09-25 09:04] VITALS: BP 137/77; PULSE 67; RESP 13; TEMP 36.2; O2SAT 98; BMI 22.7
== END 2024-09-25 09:36 | disposition home or self-care (01) ==
PROVIDERS: PCP Family Medicine; Visit Provider Family Medicine
DX: Z00.00 Encounter for general adult medical examination without abnormal findings (principal); E78.2 Mixed hyperlipidemia; K64.9 Unspecified hemorrhoids; Z12.11 Encounter for screening for malignant neoplasm of colon; Z12.5 Encounter for screening for malignant neoplasm of prostate

== ENCOUNTER 2024-10-02 13:44 | Outpatient (AMB) | payer OTHER, SELFPAY ==
--- NOTE | 2024-10-02 13:45 | A.OFFVIS_ITS ---
Vital Signs 10/02/24 13:51 Height 5 ft 8 in Weight 153 lb BMI 23.3 BP 132/82 Blood Pressure Location Rt brachial Position Sitting Pulse 72 Intake Visit Reasons: Hemorrhoids Intake Note: Patient referred by pcp Dr. Cooper for external hemorrhoids on and off for 2yrs. Patient c/o: bleeding. Denies constipation. 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 Over the last several months, they have become more symptomatic with pain, swelling, and bleeding. Patient had colonoscopy within the last couple of years. Aside from the hemorrhoids this was otherwise within normal limits. Patient takes stool softeners and does local wound care but nonetheless this is hemorrhoids are symptomatic with symptoms as noted above. Patient otherwise tolerating a diet. He has regular bowel habits. Does not have a history of constipation or prolonged sitting on the toilet. He denies any anal receptive practice. 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 Rectal exam demonstrates extensive internal and external hemorrhoids involving the 7 an 11 o'clock position prone. Rectal exam was deferred secondary to patient's discomfort Assessment & Plan Assessment & Plan (1) Hemorrhoids reducible with difficulty: Code(s): K64.8 - Other hemorrhoids Category: Surgical Plan Risks, benefits, alternatives of hemorrhoidectomy reviewed with the patient and included but not limited to bleeding, infection, recurrence, numbness, pain, scarring, incontinence and the patient wishes to proceed. All questions answered. Arrangements will be made for this on a day which is convenient for him. Patient will also receive a many bowel prep day prior. Coding Level of Care Code New Pt Level 5 (25182) Diagnoses Hemorrhoids reducible with difficulty K64.8
[2024-10-02 13:51] VITALS: BP 132/82; PULSE 72; BMI 23.3
== END 2024-10-02 13:58 | disposition home or self-care (01) ==
PROVIDERS: PCP Family Medicine; Referring Provider Family Medicine; Visit Provider Surgery
DX: K64.8 Other hemorrhoids (principal)
CPT/HCPCS: 99204

== ENCOUNTER → 2024-10-02 13:44 | Outpatient (BNVA) | payer OTHER, SELFPAY | PROVIDERS: PCP Family Medicine; Referring Provider Family Medicine; Visit Provider Surgery ==

== ENCOUNTER 2024-12-22 07:31 | Outpatient (REF) | payer OTHER, SELFPAY ==
[2024-12-22 11:45] LABS: Alanine Aminotransferase 33 U/L (0-40); Albumin Level 4.2 g/dL (3.5-5.0); Alkaline Phosphatase 72 U/L (39-117); Anion Gap 12 (12-20); Aspartate Amino Transferase 30 U/L (5-37); Bilirubin Total 0.7 mg/dL (0.0-1.0); Blood Urea Nitrogen 18 mg/dL (9-16); Calcium 9.2 mg/dL (8.4-10.2); Carbon Dioxide 26 mmol/L (22-29); Chloride 106 mmol/L (96-108); Cholesterol 170 mg/dL (<200); Estimated Glomerular Filt Rate > 60; Glucose Fasting 93 mg/dL (60-99); HDL Cholesterol 47 mg/dL (>40); LDL Cholesterol Calculated 107 mg/dL (<100); Potassium 4.5 mmol/L (3.3-5.1); Sodium 139 mmol/L (135-145); Total Protein 7.2 g/dL (6.5-8.0); Triglycerides 82 mg/dL (<150)
[2024-12-22 11:47] LABS: Appearance Urine Clear; Color Urine Yellow; Glucose Urine UA Negative (Negative); Leukocyte Esterase Urine Negative (Negative); Nitrite Urine Negative (Negative); Urine Blood Negative (Negative); Urine Ketones Negative (Negative); Urine Protein Negative (Neg-Trace)
[2024-12-22 11:53] LABS: Prostate Specific Antigen Scr 1.32 ng/mL (<0.05-4.0)
[2024-12-22 12:05] LABS: TSH reflex Free T4 2.13 uIU/mL (0.32-4.0)
[2024-12-22 12:13] LABS: Creatinine Urine 106.74 mg/dL; Microalbum/Creatinine Ratio Ur 5.6 ug/mg cr (<30)
== END 2024-12-22 07:32 | disposition home or self-care (01) ==
LOC: HO.WFDLDS 07:31
PROVIDERS: Visit Provider Family Medicine
DX: Z00.00 Encounter for general adult medical examination without abnormal findings (principal); E78.2 Mixed hyperlipidemia; Z12.5 Encounter for screening for malignant neoplasm of prostate; I10 Essential (primary) hypertension
CPT/HCPCS: 36415; 80053; 80061; 81003; 82043; 82570; 84153; 84443

== ENCOUNTER 2024-12-28 08:14 | Outpatient (AMB) | payer OTHER, SELFPAY ==
--- NOTE | 2024-12-28 08:31 | A.OFFPC_ITS ---
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 Labs drawn 12/22/24. Reviewed labs with pt. Triglyerices 82. TC 170. LDL improved from 160 to 107. HDL 47. He is on artovastatin 20mg. He feels he is doing better with his diet. He notes there is room for improvement in his diet. He reports some fatigue. He states he sleeps well. Denies any snoring, gasping for air. HPI Comments History of Present Illness Details Documentation assistance for Jr Cooper MD, was provided by Federico Trujillo,? Descriptive Catalog Librarian on 12/28/2024 at 8:43 AM EST. Lamb, Dr. Cooper, have read, observed, and verified documentation. ?? 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 Current occupational exposures/hazards: No Cognitive needs: No Hearing needs: No Vision needs: No (Glasses) Questionnaire Thrive Questionnaire Date Thrive assessed: 09/25/24 I am a: Patient What is your living situation today?: I have a steady place to live Within the past 12 months, did the food you bought not last and you didn't have the money to get more?: Never true Within the past 12 months, did you worry whether your food would run out before you got money to buy more?: Never true Do you have trouble paying for medicines?: No Do you have trouble getting transportation to medical appointments?: No Do you have trouble paying your heating and electricity bill?: No Do you have trouble taking care of your child, family member or friend?: No Do you have trouble with day-to-day activities such as bathing, preparing meals, shopping, managing finances, etc.?: No Are you currently unemployed and looking for a job?: No Are you interested in more education?: No Please select the resources that you would like help with: None Currently or been in a relationship where the following occur: No concerns r eported THRIVE Score: 0 ANISA-7 AMB Questionnaire ANISA-7 Date ANISA - 7 assessed: 09/22/23 Source: Developed by Drs. Pipo Yo, Hayley Gutiérrez, Navid Levine and colleagues, with an educational robles from [employer]. Review of Systems Const Denies chills, Reports fatigue, Denies fever(s), Denies headache(s) and Denies weakness ENT Denies dizziness and Denies headache(s) Card Denies dyspnea Resp Denies cough, Denies dyspnea, Denies wheezing and Denies other (shortness of breath) Musc Denies numbness and Denies tingling Neuro Denies dizziness, Denies headache(s), Denies numbness, Denies tingling and Denies weakness Psych Denies anxiety and Denies depression Endo Reports fatigue Aller/Immun Denies wheezing Physical exam (Primary Care) Vital Signs: Last Vital Signs Temp 97.8 F 12/28/24 08:34 Pulse 65 12/28/24 08:34 Resp 16 12/28/24 08:34 BP 135/74 12/28/24 08:34 Pulse Ox 98 12/28/24 08:34 Oxygen Delivery Method Room Air 12/28/24 08:34 BMI result Body Mass Index 22.7 Tobacco/Smoking Status: Tobacco use Status Tobacco use date assessed 12/28/24 12/28/24 08:36 Patient Tobacco Use Status Former Tobacco user 12/28/24 08:36 e-Cigarette/Vaping Use Never Used 12/28/24 08:36 Thrive Assessment: Date of Thrive Assessment Date Thrive assessed 09/25/24 12/28/24 08:36 Currently or been in a relationship where the following occur: No concerns reported Const General: well developed; No acute distress Nutritional Appearance: well nourished Orientation/consciousness: patient oriented x3 HENMT Head: Yes normocephalic and Yes atraumatic Eyes General: appearance normal, both eyes and all related structures Pupils: Equal, round and reactive pupils present EOM: EOMs intact bilaterally Resp Effort & Inspection: normal respiratory effort Neuro General: patient oriented x3 and gait normal Cranial nerves: Yes Equal, round and reactive pupils present Psych Affect: normal affect Coding Level of Care Code Est Pt Level 4 (25343) Diagnoses Mixed hyperlipidemia E78.2 Hyperlipidemia type: mixed hyperlipidemia Fatigue R53.83 Screening for prostate cancer Z12.5 Assessment & Plan Assessment & Plan (1) Hyperlipidemia: Code(s): E78.5 - Hyperlipidemia, unspecified Category: Medical Qualifiers: Hyperlipidemia type: mixed hyperlipidemia Qualified Code(s): E78.2 - Mixed hyperlipidemia Plan: Lipids?much?improved?now?that?he?is?back?on?atorvastatin?20?mg?daily. Almost?at?goal?of?less?than?100 Continue?atorvastatin?20?mg?daily?and?work?at?lifestyle?changes. (2) Fatigue: Code(s): R53.83 - Other fatigue Category: Medical Plan: Patient?notices?some?fatigue Briefly?discussed?sleep?hygiene?and encouraged?him?to?sleep?on?his?side?and?get?plenty?of?daytime?exercise He?would?like?testosterone?levels?checked?so?I?have?ordered?this?as?well?as?CBC & BMP (3) Screening for prostate cancer: Code(s): Z12.5 - Encounter for screening for malignant neoplasm of prostate Category: Medical Plan: PSA?was?within?normal?range Will?continue?annual?screening Orders: Orders Vitamin D 25-OH Total Today E55.9 - Vitamin D deficiency, unspecified, R53.83 - Other fatigue Testosterone, Free/Total Today R53.83 - Other fatigue Basic Metabolic Panel Today R53.83 - Other fatigue, Z00.00 - Encounter for general adult medical examination without abnormal findings Complete Blood Count Auto Diff Today R53.83 - Other fatigue, Z00.00 - Encounter for general adult medical examination without abnormal findings Vitamin B12 and Folate Today E53.8 - Deficiency of other specified B group vitamins, R53.83 - Other fatigue
[2024-12-28 08:34] VITALS: BP 135/74; PULSE 65; RESP 16; TEMP 36.6; O2SAT 98; BMI 22.7
== END 2024-12-28 08:52 | disposition home or self-care (01) ==
LOC: HO.HMCFM 08:15
PROVIDERS: PCP Family Medicine; Visit Provider Family Medicine
DX: E78.2 Mixed hyperlipidemia (principal); R53.83 Other fatigue; Z12.5 Encounter for screening for malignant neoplasm of prostate

== ENCOUNTER → 2024-12-28 08:14 | Outpatient (BNVA) | payer OTHER, SELFPAY | PROVIDERS: PCP Family Medicine; Visit Provider Family Medicine | DX: Z13.89 Encounter for screening for other disorder (principal) ==

== ENCOUNTER 2025-01-24 07:36 | Outpatient (REF) | payer OTHER, SELFPAY ==
[2025-01-24 11:14] LABS: MANUAL DIFF FLAG NO
[2025-01-24 11:39] LABS: Basophils Percent Auto 1.1 % (0-2); Eosinophils Absolute Auto 0.3 X10*3/uL (0.0-0.4); Eosinophils Percent Auto 7.7 % (0-4); Hematocrit 43.3 % (42.0-52.0); Hemoglobin 14.2 g/dl (14.0-18.0); Imm Gran Abs Auto 0.01 X10*3/uL (0.00-0.03); Imm Gran Pct Auto 0.3 % (0.0-0.4); Lymphocytes Absolute Auto 0.9 X10*3/uL (1.2-4.9); Lymphocytes Percent Auto 25.7 % (20-40); Mean Corpuscular HGB Conc 32.8 g/dl (31.0-36.0); Mean Corpuscular Hemoglobin 31.3 pg (27.0-33.0); Mean Corpuscular Volume 95.4 fL (80.0-98.0); Mean Platelet Volume 10.6 fL (9.4-12.4); Monocytes Absolute Auto 0.3 X10*3/uL (0.1-1.2); Monocytes Percent Auto 6.9 % (2-11); Neutrophils Absolute Auto 2.1 x10*3/uL (2.0-8.3); Neutrophils Percent Auto 58.3 % (45-73); Platelet Count 254 X10*3/uL (160-400); Red Blood Count 4.54 X10*6/uL (4.60-5.80); Red Cell Distribution Width 13.1 % (11.0-16.0); White Blood Count 3.6 X10*3/uL (4.8-10.8)
[2025-01-24 11:59] LABS: Anion Gap 13 (12-20); Blood Urea Nitrogen 17 mg/dL (9-16); Calcium 9.1 mg/dL (8.4-10.2); Carbon Dioxide 25 mmol/L (22-29); Chloride 107 mmol/L (96-108); Estimated Glomerular Filt Rate > 60; Glucose Random 135 mg/dL (60-115); Potassium 4.2 mmol/L (3.3-5.1); Sodium 141 mmol/L (135-145)
[2025-01-24 12:10] LABS: Vitamin D 25-OH Total 49.9 ng/mL (>30)
[2025-01-24 12:30] LABS: Folate 13.2 ng/mL (> or = 4.0); Vitamin B12 354 pg/mL (200-900)
[2025-01-29 21:33] LABS: Testosterone, Free 49.9 pg/mL (35.0-155.0); Testosterone, Total 219 ng/dL (250-1100)
== END 2025-01-24 07:37 | disposition home or self-care (01) ==
LOC: HO.WFDLDS 07:36
PROVIDERS: Visit Provider Family Medicine
DX: Z00.00 Encounter for general adult medical examination without abnormal findings (principal); E55.9 Vitamin D deficiency, unspecified; R53.83 Other fatigue; E53.8 Deficiency of other specified B group vitamins
CPT/HCPCS: 36415; 80048; 82306; 82607; 82746; 84402; 84403; 85025

== ENCOUNTER → 2025-01-31 13:43 | Outpatient (BNVA) | payer OTHER, SELFPAY | PROVIDERS: PCP Family Medicine; Visit Provider Family Medicine | DX: Z13.89 Encounter for screening for other disorder (principal) ==

== ENCOUNTER 2025-03-23 09:21 | Outpatient (REF) | payer OTHER, SELFPAY ==
--- NOTE | ~2025-03-23 | XR_ITS ---
EXAMINATION: XR KNEE, RIGHT CLINICAL INFORMATION: M25.561 - Pain in right knee COMPARISON: None available. TECHNIQUE: Four views of the right knee. FINDINGS: No fracture, dislocation, or suspicious bone lesion. There is normal alignment. Joint spaces appear preserved. There is a small to moderate suprapatellar joint effusion suspected. Soft tissues appear normal. XR/XR knee RT 4V IMPRESSION: 1. No acute bony abnormalities. 2. Small to moderate joint effusion suspected. Electronically signed by: Fletcher Root MD 03/23/2025 10:13 AM EDT
== END 2025-03-23 09:22 | disposition home or self-care (01) ==
LOC: HO.HMGCX 09:21
PROVIDERS: PCP Family Medicine; Visit Provider Physician Assistant Medical
DX: M25.561 Pain in right knee (principal); M25.461 Effusion, right knee
CPT/HCPCS: 73564

== ENCOUNTER 2025-03-23 09:21 | Outpatient (AMB) | payer OTHER, SELFPAY ==
[2025-03-23 09:23] VITALS: BP 126/54; PULSE 77; TEMP 37.2; O2SAT 98; BMI 23.1
--- NOTE | 2025-03-23 09:23 | AM.OFFWIN_ITS ---
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 - The swelling and pain began acutely ye sterday, with difficulty in straightening the knee and pain primarily in the posterior aspect. - The patient engaged in physical activi ties three weeks ago, including playing volleyball, which may have contributed to the initial mild swelling and tightness. - Difficulty in straightening the knee w as noted after prolonged sitting during a motorcycle trip, although it resolved temporarily. - The swelling and stiffness worsened af ter a weekend of walking, culminating in significant swelling and pain yesterday. - A slight yellowish discoloration was o bserved a couple of weeks ago, but there is no history of gout. - Icing was attempted without significan t reduction in swelling. - He denies numbness, tingling, calf mary n, ankle pain, or foot pain. Physical Exam General: Cooperative, healthy appearing, comfortable, no acute distress and well developed Respiratory: Normal respiratory effort and able to speak in complete sentences. Clear to auscultation bilaterally Cardiovascular: Regular rate and rhythm. Normal S1 and S2 Skin: No rashes or lesions noted. Musculoskeletal: Swelling noted on the right knee. FROM of the knee bilaterally. No click noted. No TTP of the patella, medial or lateral condyle, medial or lateral meniscus. Tenderness noted in the posterior fossa on the right. Negative anterior drawer test. Negative Alejandra noted. DTR are 1+ on the LE. Negative Homans noted. FROM of the ankle. Ambulates with a steady gait. Strength is 5/5 on the LE bilaterally. Neuro: Sensation is intact on the LE bilaterally. [facility] Medical History History of diverticulitis Elevated cholesterol Surgical History History of hernia surgery Social History Housing: House Alcohol intake: current Alcohol intake frequency: a few times a month Alcohol type: beer Patient Tobacco Use Status: Former Tobacco user e-Cigarette/Vaping Use: Never Used Second Hand Smoke Exposure: No service: No Current occupational status: employed Current occupation: [employer] Current occupational exposures/hazards: No Cognitive needs: No Hearing needs: No Vision needs: No (Glasses) Review of Systems Const All systems reviewed & are unremarkable except as noted in HPI and below Physical Exam Vital Signs: Last Vital Signs Temp 98.9 F 03/23/25 09:23 Pulse 77 03/23/25 09:23 BP 126/54 L 03/23/25 09:23 Pulse Ox 98 03/23/25 09:23 Oxygen Delivery Method Room Air 03/23/25 09:23 BMI result Body Mass Index 23.1 Results Reviewed Results Reviewed: Reviewed the x-ray in the office Assessment & Plan Assessment & Plan (1) Right knee pain: Code(s): M25.561 - Pain in right knee Qualifiers: Chronicity: acute Qualified Code(s): M25.561 - Pain in right knee Plan Most likely strain vs arthtitis vs gout vs Corbett's cyst vs bursitis Plan - rest, ice and elevation - wear brace for support - will order an x-ray in the office today - will refer him to ortho for further evaluation - naproxen as needed for pain - follow up with PCP Medications: New naproxen 500 mg PO Q12H PRN 20 tabs 0RF pain 7 days Coding Level of Care Code Est Pt Level 4 (78195) Diagnoses Acute pain of right knee M25.561 Chronicity: acute
== END 2025-03-23 10:28 | disposition home or self-care (01) ==
PROVIDERS: PCP Family Medicine; Visit Provider Physician Assistant Medical
DX: M25.561 Pain in right knee (principal)

== ENCOUNTER → 2025-03-23 09:50 | Outpatient (BNV) | payer OTHER, SELFPAY | PROVIDERS: PCP Family Medicine; Visit Provider Radiology Diagnostic Radiology | DX: M25.461 Effusion, right knee (principal) | CPT/HCPCS: 73564 ==

== ENCOUNTER 2025-04-17 07:44 | Outpatient (AMB) | payer OTHER, SELFPAY ==
--- NOTE | 2025-04-17 07:57 | A.OFFVIS_ITS ---
Intake Visit Reasons: low testosterone Intake Note: Patient is present for LOW TESTOSTERONE Urology Medication:NONE Antibiotic Allergy:NONE Blood Thinner:NONE TODAY'S PVR:0ML'S Outsole Flexer Required: No Allergies No Known Allergies Allergy (Verified 04/17/25 08:30) Medication List - Last Reconciled 04/17/25 by VICTOR HUGO Solo atorvastatin 20 mg PO BEDTIME 90 days naproxen 500 mg PO Q12H PRN 7 days HPI Comments Details: Benedict Gregory is a very pleasant 59-year-old male patient of Dr. Cooper. He has a past medical history of diverticulitis and hyperlipidemia. He presents to the office today as a new patient for hypogonadism. In discussion with the patient today he reports discussing ongoing issues with generalized fatigue, low libido, and change in his erections. He reports having had testosterone labs drawn and they were noted to be low at which time recommendations were made for urology referral for further assessment evaluation. He reports the symptoms have been present for approximately 1 year. He denies any previous trauma, recreational drug use, anabolic steroid use, or recent illness. Labs were reviewed as noted and trended below: PSA: 08/15 1.6, 01/14 1.3 Testosterone: 02/14 219 Free testosterone: 02/14 49.9 He otherwise denies any bothersome urinary issues. He denies urinary urgency, urinary frequency, incontinence, nocturia, hematuria, dysuria, foul smelling urine, changes to urinary stream, flank pain, fever, and or chills. He is happy with his current voiding parameters. In office urinalysis results reviewed with the patient today. We did discussed potential causes of hypogonadism as well as further workup in risks and benefits of these interventions. All questions were answered. He otherwise offers no other issues or concerns at this time. Urinary Symptoms Review - No urinary symptoms or issues reported Discussion Notes The patient was informed about the need for additional hormonal blood work to determine potential causes of low testosterone levels. We discussed the various methods of testosterone replacement, including gels, pellets, and injections, and insurance coverage for these treatments. The patient was advised to have blood drawn two hours upon waking up, and a follow-up appointment was suggested to discuss the results and potential treatment options. Plan 1. Low Testosterone Levels Further hormonal blood work will be conducted to further assess the underlying cause of low testosterone levels. Depending on the results, testosterone replacement options such as gels, pellets, or injections may be considered, with insurance coverage and patient preference guiding the choice. [facility] Medical History History of diverticulitis Elevated cholesterol Surgical History History of hernia surgery Social History Housing: House Alcohol intake: current Alcohol intake frequency: a few times a month Alcohol type: beer Patient Tobacco Use Status: Former Tobacco user e-Cigarette/Vaping Use: Never Used Second Hand Smoke Exposure: No service: No Current occupational status: employed Current occupation: [employer] ([employer]) Current occupational exposures/hazards: No Cognitive needs: No Hearing needs: No Vision needs: No (Glasses) Review of Systems Const All systems reviewed & are unremarkable except as noted in HPI and below Physical Exam Const General: cooperative, healthy appearing, comfortable, no acute distress, well developed, alert and awake Orientation/consciousness: patient oriented x3 Limitations: no limitations HEENT Head: Yes normal to inspection, Yes normocephalic and Yes atraumatic Ears: hearing grossly normal bilaterally Eyes General: appearance normal, both eyes and all related structures Neck Neck: Yes normal visual inspection and Yes trachea midline Chest Chest palpation & inspection: normal inspection of the chest Resp Effort & Inspection: normal respiratory effort and able to speak in complete sentences Cardio Rate: regular rate GI Inspection: Yes normal to inspection General: Yes no CVA tenderness Back/Spine/Pelvis Back: no CVA tenderness Skin General skin exam: no rashes or lesions noted Neuro General: patient oriented x3 Extrem General: Yes normal to inspection Psych Appearance: grossly normal and well kempt Mental Status: mental status grossly normal Speech and movement: Normal speech and movement present and Clear speech present Affect: normal affect Attitude: cooperative Thought process: Normal thought process present Thought content: Normal thought content present Insight: Fair insight present (Psych) Judgement: Fair judgement present (Psych) Office Procedures Post Void Residual Post Residual Void Post Void Residual (PVR): 0 [id number]-Widm Void Residual by ultrasound Results AMB Urinalysis, Automated UA Leukoctes 0 Maurice/uL Last Edit by DOMINIK Carter on 04/17/25 08:11 UA Nitrite Negative Last Edit by DOMINIK Carter on 04/17/25 08:11 UA Urobilinogen 0.2 mg/dL Last Edit by DOMINIK Carter on 04/17/25 08:1 1 UA Protein 15 mg/dL Last Edit by DOMINIK Carter on 04/17/25 08:11 UA pH 6.0 Last Edit by Angelica Cedeño [facility] on 04/17/25 08:11 UA Blood 0 Conor/uL Last Edit by Angelica Cedeño [facility] on 04/17/25 08:11 UA Specific Ramah 1.020 Last Edit [facility] on 04/17/25 08: 11 UA Ketone Negative Last Edit by [facility] on 04/17/25 08:11 UA Bilirubin 0 mg/dL Last Edit by Angelica Cedeño [facility] on 04/17/25 08:11 UA Glucose 0 mg/dL Last Edit by [facility] on 04/17/25 08:11 Results Reviewed Results Reviewed: Laboratory Last Values Urine pH (Auto) 6.0 04/17/25 08:10 Specific Ramah (Auto) 1.020 04/17/25 08:10 Urine Protein (Auto) 15 mg/dL 04/17/25 08:10 Glucose (UA)(Auto) 0 mg/dL 04/17/25 08:10 Urine Ketones (Auto) Negative 04/17/25 08:10 Urine Blood (Auto) 0 Conor/uL 04/17/25 08:10 Urine Nitrite (Auto) Negative 04/17/25 08:10 Urine Bilirubin (Auto) 0 mg/dL 04/17/25 08:10 Urine Urobilinogen (Auto) 0.2 mg/dL 04/17/25 08:10 Leukocyte Esterase (Auto) 0 Maurice/uL 04/17/25 08:10 Assessment & Plan Assessment & Plan (1) Hypogonadism in male: Code(s): E29.1 - Testicular hypofunction Category: Medical (2) Low testosterone: Code(s): R79.89 - Other specified abnormal findings of blood chemistry Category: Medical Plan In office urinalysis results reviewed with the patient today; as noted above. PVR 0ml's Recent labs were reviewed with the patient today; as noted above. We did discussed potential causes of hypogonadism as well as further treatment options and risks and benefits of these treatment options. We did discussed lifestyle modifications. Will obtain FSH, LH, prolactin, estradiol, testosterone free and total for further assessment evaluation. He currently denies any bothersome urinary issues or concerns. He reports be happy with current voiding parameters. All questions were answered. Follow-up in 2-6 weeks with labs to be completed prior; or sooner with any issues, concerns, and or questions. Orders: Orders Sex Hormone Binding Globulin Today E29.1 - Testicular hypofunction Testosterone, Free/Total Today E29.1 - Testicular hypofunction Prolactin Today E29.1 - Testicular hypofunction, R79.89 - Other specified abnormal findings of blood chemistry Lutenizing Hormone Today E29.1 - Testicular hypofunction, R79.89 - Other specified abnormal findings of blood chemistry Estrad Free (Tot Ultra + Free) Today E29.1 - Testicular hypofunction, R79.89 - Other specified abnormal findings of blood chemistry AMB Urinalysis Automated Today Z13.9 - Encounter for screening, unspecified Follicle Stimulating Hormone Today E29.1 - Testicular hypofunction, R79.89 - Other specified abnormal findings of blood chemistry Patient Instructions: The patient had an opportunity to ask questions regarding the treatment plan. All questions were answered. Physical exam, labs, and imaging were discussed and reviewed in detail. As well as risks, benefits, and discussion of treatment choices. No major barriers to understanding were identified. The patient expressed understanding and agreement with the above treatment plan. The patient was made aware they should contact our office by phone for worsening of their current condition, the appearance of new symptoms, or with any questions or concerns. Compliance is encouraged with any medications and follow up testing that is ordered. It is a privilege to be allowed the opportunity to participate in? your urological care.? Again, if you have any questions or concerns If you have any questions or concerns please do not hesitate to contact me. The office is [phone]. This note is constructed using voice recognition software. While every effort has been made to ensure accuracy general labor errors may have been included. Yours sincerely, VICTOR HUGO Solo Coding Level of Care Code New Pt Level 3 (35527) Diagnoses Hypogonadism in male E29.1 Low testosterone R79.89 CPT Codes Post Residual Void - PVR CPT Code: 82655-Dwwy Void Residual by ultrasound ([id number])
== END 2025-04-17 08:30 | disposition home or self-care (01) ==
LOC: HO.HUSH 07:45
PROVIDERS: PCP Family Medicine; Visit Provider Nurse Practitioner Family
DX: E29.1 Testicular hypofunction (principal); R79.89 Other specified abnormal findings of blood chemistry; Z13.9 Encounter for screening, unspecified
CPT/HCPCS: 99203

== ENCOUNTER → 2025-04-17 07:44 | Outpatient (BNVA) | payer OTHER, SELFPAY | PROVIDERS: PCP Family Medicine; Visit Provider Nurse Practitioner Family | DX: E29.1 Testicular hypofunction (principal) | CPT/HCPCS: 51798; 81003 ==

== ENCOUNTER 2025-04-19 07:39 | Outpatient (REF) | payer OTHER, SELFPAY ==
[2025-04-20 06:09] LABS: Follicle Stimulating Hormone 14.4 mIU/mL (1.4-12.8)
[2025-04-26 16:03] LABS: Testosterone, Free 50.4 pg/mL (35.0-155.0)
[2025-05-05 23:14] LABS: Estradiol Free 0.59 pg/mL; Estradiol, Ultrasensitive 22 pg/mL (< OR = 29)
== END 2025-04-19 07:40 | disposition home or self-care (01) ==
LOC: HO.WFDLDS 07:39
PROVIDERS: Visit Provider Nurse Practitioner Family
DX: E29.1 Testicular hypofunction (principal); R79.89 Other specified abnormal findings of blood chemistry
CPT/HCPCS: 36415; 82670; 82681; 83001; 83002; 84146; 84270; 84402; 84403

== ENCOUNTER 2025-05-07 16:12 | Outpatient (AMB) | payer OTHER, SELFPAY ==
--- NOTE | 2025-05-07 16:13 | A.OFFVIS_ITS ---
Intake Visit Reasons: 3w/labs Intake Note: patient presents today for: telehalth 3wk/labs urology medications: none blood thinners: none labs done 04/19/25: LH 6.3, FSH 14.4, pro 9.1, t-testo 221, free testo 50.4, sex HBG 15 Work And Family Life Consultant Required: No Accompanied by: Self / Same As Patient Allergies No Known Allergies Allergy (Verified 05/07/25 16:40) Medication List - Last Reconciled 05/07/25 by VICTOR HUGO Solo atorvastatin 20 mg PO BEDTIME 90 days HPI Comments Details: Benedict Gregory is a very pleasant 59-year-old male patient of Dr. Cooper. He has a past medical history of diverticulitis and hyperlipidemia. He is being followed up on today via video telehealth. Of note, patient was seen approximately 3 weeks ago as a new patient for hypogonadism at which time labs were ordered for further assessment evaluation. These results were reviewed and communicated with the patient today as noted and trended below: PSA: 08/15 1.6, 01/14 1.3 Testosterone: 02/14 219, 04/16 221 Free testosterone: 02/14 49.9, 04/16 50.4 FSH: 04/16 14.4 LH: 04/16 6.3 Estradiol: 04/16 22 Prolactin: 04/16 9.1 SHB/25 15 We did discuss low testosterone as well as further treatment options. We discussed testosterone replacement verses restorationist. All questions were answered. He does continue to discusses ongoing generalized fatigue, low libido, and change to his erections. We did discussed correlation of low testosterone with these reported issues. He denies any previous trauma, rec reational drug use, anabolic steroid use, or recent illness. He otherwise denies any bothersome urinary issues. He denies urinary urgency, urinary frequency, incontinence, nocturia, hematuria, dysuria, foul smelling urine, changes to urinary stream, flank pain, fever, and or chills. He is happy with his current voiding parameters. We did discussed potential causes of hypogonadism as well as further workup in risks and benefits of these interventions. All questions were answered. He otherwise offers no other issues or concerns at this time. [facility] Medical History History of diverticulitis Elevated cholesterol Surgical History History of hernia surgery Social History Housing: House Alcohol intake: current Alcohol intake frequency: a few times a month Alcohol type: beer Patient Tobacco Use Status: Former Tobacco user e-Cigarette/Vaping Use: Never Used Second Hand Smoke Exposure: No service: No Current occupational status: employed Current occupation: [employer] Current occupational exposures/hazards: No Cognitive needs: No Hearing needs: No Vision needs: No (Glasses) Review of Systems Const All systems reviewed & are unremarkable except as noted in HPI and below Physical Exam Const General: cooperative, healthy appearing, comfortable, no acute distress, well developed, alert and awake Orientation/consciousness: patient oriented x3 Resp Effort & Inspection: normal respiratory effort and able to speak in complete sentences Neuro General: patient oriented x3 Psych Appearance: well kempt Speech and movement: Clear speech present Attitude: cooperative Thought process: Normal thought process present Thought content: Normal thought content present Insight: Fair insight present (Psych) Judgement: Fair judgement present (Psych) Telehealth Telehealth Telehealth Platform: [employer] Location of provider rendering services: practice address Location of patient: address on file Patient Identification confirmed using: Name, : Yes Telehealth method: video Patient verbally consented to treatment: Yes Patient verbally consented to billing insurance company: Yes Patient informed of any privacy concerns related to visit: Yes Minutes spent on Phone/Video with Pt.: 20 Assessment & Plan Assessment & Plan (1) Low testosterone: Code(s): R79.89 - Other specified abnormal findings of blood chemistry Category: Medical (2) Hypogonadism in male: Code(s): E29.1 - Testicular hypofunction Category: Medical Plan Recent labs were reviewed with the patient today; as noted above. We did discussed potential causes of hypogonadism as well as further treatment options and risks and benefits of these treatment options. We did discussed lifestyle modifications He currently denies any bothersome urinary issues or concerns. He reports be happy with current voiding parameters. All questions were answered. Start low-dose Cialis as discussed and prescribed. Will obtain testosterone free and total in 3-6 months. Follow-up in 3-6 months with labs to be completed prior; or sooner with any issues, concerns, and or questions. Medications: New tadalafil (Cialis) [id number] [facility] GroupGDRX Member [id number] 5 mg PO DAILY 90 tabs 3RF 90 days Coding Level of Care Code Tele Est Pt Level 4 (19576) Diagnoses Low testosterone R79.89 Hypogonadism in male E29.1
== END 2025-05-07 16:53 | disposition home or self-care (01) ==
LOC: HO.HUSH 16:12
PROVIDERS: PCP Family Medicine; Visit Provider Nurse Practitioner Family
DX: R79.89 Other specified abnormal findings of blood chemistry (principal); E29.1 Testicular hypofunction
CPT/HCPCS: 99214